=== PATIENT | male | born 1980 | race Caucasian/White ===

== ENCOUNTER 2016-04-15 15:42 | Observation (INO) | payer OTHER ==
[~2016-04-15] VITALS: Ht 180.3 cm; Wt 113.4 kg
[~2016-04-15 15:42] MED LIST: IBUP800T23 PO; METH500T3 PO
[2016-04-15 15:50] VITALS: BP 174/96; PULSE 83; RESP 20; TEMP 97.5; O2SAT 99
[2016-04-15] MEDS ORDERED: METH500T3 PO (15:54)
[2016-04-15 16:11] VITALS: O2SAT 95
--- NOTE | 2016-04-15 16:12 | PD ---
HPI Chief Complaint: Chest Pain Time Seen by Provider: 16:04 Travel History International Travel<30 days: No Contact w/Intl Traveler<30days: No Traveled to known affect area: No History of Present Illness HPI 35-year-old male complains of chest pain. Patient states that he has intermittent substernal chest pain for the past week. Patient states the pain is substernal pressure with radiation to left arm. Patient states that the pain usually lasts about 10 minutes and resolved completely. Patient states the pain is not associated with exertion. Patient states that he has shortness of breath with the chest pain. Patient denies any palpitation nausea vomiting diaphoresis. Patient denies any coughing congestion fever chills. Patient has history of elevated blood pressure recently however are not on any medication. Patient denies history diabetes, dyslipidemia. Patient was smoking in the past however stopped smoking in 2012. Patient denies family history heart disease. On a scale of 1-10 the pain is a 7. Patient took aspirin 325 mg, 2 tablets today. PFSH Past Medical History Immunizations Current: Yes Past Surgical History Other Surgery: Yes Social History Alcohol Use: No Tobacco Use: No (QUIT 2012) Substance Use: No Allergies-Medications (Allergen,Severity, Reaction): Coded Allergies: No Known Allergies (Unverified , 04/15/16) Reported Meds & Prescriptions Reported Meds & Active Scripts Active Reported Methocarbamol 500 Mg Tab 500 Mg PO QID Review of Systems General / Constitutional: No: Fever Eyes: No: Visual changes HENT: No: Headaches Cardiovascular: Positive: Chest Pain or Discomfort Respiratory: No: Shortness of Breath Gastrointestinal: No: Abdominal Pain Genitourinary: No: Dysuria Musculoskeletal: No: Pain Skin: No Rash Neurologic: No: Weakness Psychiatric: No: Depression Endocrine: No: Polydipsia Hematologic/Lymphatic: No: Easy Bruising Physical Exam Narrative GENERAL: Well-nourished, well-developed patient. SKIN: Warm and dry. HEAD: Normocephalic. EYES: No scleral icterus. No injection or drainage. NECK: Supple, trachea midline. No JVD or lymphadenopathy. CARDIOVASCULAR: Regular rate and rhythm without murmurs, gallops, or rubs. RESPIRATORY: Breath sounds equal bilaterally. No accessory muscle use. GASTROINTESTINAL: Abdomen soft, non-tender, nondistended. MUSCULOSKELETAL: No cyanosis, or edema. BACK: Nontender without obvious deformity. No CVA tenderness. Neurologic exam normal. Data Data Last Documented VS Vital Signs Date Time Temp Pulse Resp B/P Pulse Ox O2 Delivery O2 Flow Rate FiO2 04/15/16 16:48 64 20 131/84 95 04/15/16 15:50 97.5 Orders Complete Blood Count With Diff (04/15/16 16:08) Comprehensive Metabolic Panel (04/15/16 16:08) Creatine Kinase (Cpk) (04/15/16 16:08) Troponin I (04/15/16 16:08) Prothrombin Time / Inr (Pt) (04/15/16 16:08) Act Partial Throm Time (Ptt) (04/15/16 16:08) Chest, Single Ap (04/15/16 16:08) Iv Access Insert/Monitor (04/15/16 16:08) Ecg Monitoring (04/15/16 16:08) Oximetry (04/15/16 16:08) Labs Laboratory Tests Test 04/15/16 16:00 White Blood Count 8.7 TH/MM3 Red Blood Count 4.82 MIL/MM3 Hemoglobin 13.5 GM/DL Hematocrit 41.1 % Mean Corpuscular Volume 85.3 FL Mean Corpuscular Hemoglobin 28.1 PG Mean Corpuscular Hemoglobin 32.9 % Concent Red Cell Distribution Width 12.6 % Platelet Count 305 TH/MM3 Mean Platelet Volume 8.1 FL Neutrophils (%) (Auto) 55.9 % Lymphocytes (%) (Auto) 29.8 % Monocytes (%) (Auto) 12.8 % Eosinophils (%) (Auto) 1.1 % Basophils (%) (Auto) 0.4 % Neutrophils # (Auto) 4.9 TH/MM3 Lymphocytes # (Auto) 2.6 TH/MM3 Monocytes # (Auto) 1.1 TH/MM3 Eosinophils # (Auto) 0.1 TH/MM3 Basophils # (Auto) 0.0 TH/MM3 CBC Comment DIFF FINAL Differential Comment Prothrombin Time 10.7 SEC Prothromb Time International 1.0 RATIO Ratio Activated Partial 27.7 SEC Thromboplast Time Sodium Level 144 MEQ/L Potassium Level 3.6 MEQ/L Chloride Level 108 MEQ/L Carbon Dioxide Level 30.3 MEQ/L Anion Gap 6 MEQ/L Blood Urea Nitrogen 18 MG/DL Creatinine 0.93 MG/DL Estimat Glomerular Filtration 93 ML/MIN Rate Random Glucose 88 MG/DL Calcium Level 9.0 MG/DL Total Bilirubin 0.3 MG/DL Aspartate Amino Transf 23 U/L (AST/SGOT) Alanine Aminotransferase 46 U/L (ALT/SGPT) Alkaline Phosphatase 89 U/L Total Creatine Kinase 170 U/L Troponin I LESS THAN 0.02 NG/ML Total Protein 7.9 GM/DL Albumin 4.0 GM/DL MDM Medical Decision Making Medical Screen Exam Complete: Yes Emergency Medical Condition: Yes Interpretation(s) 1650 p.m. chest x-ray shows no acute process. CBC within normal limit. CMP within normal limit. Cardiac enzymes are normal. Differential Diagnosis Differential diagnosis including musculoskeletal, angina, TX, PE, pneumothorax. Narrative Course 35-year-old male with chest pain. Patient took aspirin 325, 2 tablets today. Patient will be admitted to the chest pain center. Diagnosis Primary Impression: Chest pain Qualified Code: R07.89 - Other chest pain Admitting Information Admitting Physician Requests: Observation John Umanzor MD Apr 15, 2016 16:12
[2016-04-15 16:28] LABS: CHLORIDE 108 MEQ/L (98-107); POTASSIUM 3.6 MEQ/L (3.5-5.1); SODIUM (NA) 144 MEQ/L (136-145)
--- NOTE | 2016-04-15 16:31 | RADHPO ---
EXAM DATE/TIME: 04/15/2016 16:17 [facility] COMPARISON: CHEST SINGLE AP, October 16, 2015, 16:00. INDICATIONS : Chest pain. MEDICAL HISTORY : None. SURGICAL HISTORY : None. ENCOUNTER: Initial ACUITY: 1 week PAIN SCORE: 6/10 LOCATION: Left chest FINDINGS: A single view of the chest demonstrates the lungs to be symmetrically aerated without evidence of mas s, infiltrate or effusion. The cardiomediastinal contours are unremarkable. Osseous structures are intact. CONCLUSION: No acute disease. Pato Jones MD on April 15, 2016 at 16:30 Board Certified Radiologist. This report was verified electronically.
[2016-04-15 16:32] LABS: ANION GAP 6 MEQ/L (5-15); APTT (PATIENT) 27.7 SEC (24.3-30.1); BICARBONATE 30.3 MEQ/L (21.0-32.0); BLOOD UREA NITROGEN 18 MG/DL (7-18); PROTHROMBIN TIME - PATIENT 10.7 SEC (9.8-11.6)
[2016-04-15 16:35] LABS: ALT (GPT) 46 U/L (12-78); AST (GOT) 23 U/L (15-37); GLOMERULAR FILTRATION RATE 93 ML/MIN (>89)
[2016-04-15 16:36] LABS: TOTAL BILIRUBIN ADULT 0.3 MG/DL (0.2-1.0)
[2016-04-15 16:37] LABS: CREATINE KINASE 170 U/L (39-308)
[2016-04-15 16:38] LABS: ALKALINE PHOSPHATASE 89 U/L (45-117)
[2016-04-15 16:42] LABS: AUTOMATED NEUTROPHIL # 4.9 TH/MM3 (1.8-7.7); BASOPHIL % 0.4 % (0.0-2.0); EOSINOPHIL # 0.1 TH/MM3 (0-0.4); EOSINOPHIL % 1.1 % (0.0-4.0); HEMATOCRIT 41.1 % (39.0-51.0); HEMO FLAGS DIFF FINAL; LYMPH % 29.8 % (9.0-44.0); LYMPHOCYTE # 2.6 TH/MM3 (1.0-4.8); MEAN CELL VOLUME 85.3 FL (80.0-100.0); MEAN CORPUSCULAR HEMOGLOBIN 28.1 PG (27.0-34.0); MEAN CORPUSCULAR HGB CONC 32.9 % (32.0-36.0); MONO % 12.8 % (0.0-8.0); NEUT % 55.9 % (16.0-70.0); PLATELET COUNT 305 TH/MM3 (150-450); RED BLOOD COUNT 4.82 MIL/MM3 (4.50-5.90); RED CELL DISTRIBUTION WIDTH 12.6 % (11.6-17.2); WHITE BLOOD COUNT 8.7 TH/MM3 (4.0-11.0)
[2016-04-15 16:48] VITALS: BP 131/84; PULSE 64; RESP 20; O2SAT 95
[2016-04-15] MEDS ORDERED: ONDANSETRON HCL 4 MG/2 ML VIAL IV PRN (17:00)
[2016-04-15] MEDS ORDERED: SODIUM CHLORIDE 0.9% FLUSH 5 ML FLUSH IVF PRN (17:00)
[2016-04-15] MEDS ORDERED: ACETAMINOPHEN 500 MG CPLT PO PRN (17:00)
[2016-04-15 17:50] VITALS: BP 142/86; PULSE 62; RESP 20; TEMP 96.7; O2SAT 99
[2016-04-15] MEDS: NITROGLYCERIN 0.4 MG SL 25 TABS/BTL SL PRN ×2 (18:45→18:51)
[2016-04-15 19:34] LABS: CREATINE KINASE 148 U/L (39-308)
[2016-04-15 19:46] LABS: CKMB 2.8 NG/ML (0.5-3.6)
[2016-04-15 20:00] VITALS: BP 142/88; PULSE 67; PULSE 75; RESP 16; TEMP 97.5; O2SAT 99
[2016-04-15] MEDS: METHOCARBAMOL 500 MG TAB PO SCH (20:42)
[2016-04-15] MEDS: SODIUM CHLORIDE 0.9% FLUSH 5 ML FLUSH IVF SCH (21:11)
[2016-04-15 22:19] LABS: CREATINE KINASE 135 U/L (39-308)
[2016-04-15 22:31] LABS: CKMB 2.7 NG/ML (0.5-3.6)
[2016-04-16] VITALS: BP 127/80; PULSE 64; RESP 16; TEMP 96.6; O2SAT 99
[2016-04-16 04:00] VITALS: BP 96/58; PULSE 58; RESP 16; TEMP 96.6; O2SAT 100
[2016-04-16 08:05] VITALS: BP 121/64; PULSE 17; RESP 18; TEMP 95.3; O2SAT 95
--- NOTE | 2016-04-16 08:23 | HHI.HP ---
[facility] No Primary Care Physician Admission Diagnosis chest pain Diagnoses: (1) Chest pain Diagnosis: Principal Chief Complaint: chest pain Travel History International Travel<30 Days: No Contact w/Intl Traveler <30 Da: No Traveled to Known Affected Are: No History of Present Illness 35-year-old male with no significant medical history is admitted to chest pain center. The patient admits to chest pain which he had for the past week, intermittently occurring. He additionally has associated numbness and tingling in the left arm. He describes the pain as sharp substernal lasting 5- 10 minutes at most. Denies it being associated with exertion or at rest, but rather occurring spontaneously. He states he could not take a deep breath due to the pain but denies actual pain with deep breathing. Patient states he took 600 mg of aspirin prior to arrival. Denies relief with nitroglycerin. He denies any current pain. Denies neck injury or heavy lifting. Denies any fevers or chills, cold, or cough symptoms. Denies any abdominal pain, nausea, vomiting. Denies history of DVT or pulmonary embolus, active cancer, hemoptysis , recent trauma, surgery, or hospitalization in the last 3 months. Denies any leg swelling. Patient states he has had episodes of high blood pressure, 155/ 90s, but does not regularly follow with a primary care physician. Review of Systems Constitutional: DENIES: Diaphoretic episodes, Dizziness Eyes: DENIES: Blurred vision Ears, nose, mouth, throat: DENIES: Throat pain, Ear Pain, Running Nose Respiratory: DENIES: Cough, Shortness of breath Cardiovascular: COMPLAINS OF: Chest pain Gastrointestinal: DENIES: Constipation, Diarrhea Genitourinary: DENIES: Dysuria Musculoskeletal: DENIES: Neck pain Integumentary: DENIES: Rash Neurologic: DENIES: Headache, Localized weakness Past Family Social History Past Medical History No reported medical problems Past Surgical History Left hand flexor tendon repair 1998 Reported Medications Patient takes no current medications. Allergies: Coded Allergies: No Known Allergies (Unverified , 04/15/16) Family History Father: CVA at age 67; skin and testicular cancer. Mother: Skin cancer. Brother: Congenital heart murmur. Patient denies any family history of RI, diabetes, hypertension Social History Quit smoking cigarettes in 2012. Prior to this smoked 1 pack per day for 10 years. Denies alcohol use. Denies any history of illicit drug use. Physical Exam Vital Signs Vital Signs Date Time Temp Pulse Resp B/P Pulse Ox O2 Delivery O2 Flow Rate FiO2 04/16/16 04:00 96.6 58 16 96/58 100 04/16/16 00:00 96.6 64 16 127/80 99 04/15/16 20:00 97.5 67 16 142/88 99 04/15/16 20:00 75 04/15/16 20:00 99 21 04/15/16 18:51 20 04/15/16 17:50 96.7 62 20 142/86 99 04/15/16 16:48 64 20 131/84 95 04/15/16 16:11 95 04/15/16 15:50 97.5 83 20 174/96 99 Physical Exam GENERAL: This is a well-nourished, well-developed patient, in no apparent distress. SKIN: No rashes, ecchymoses or lesions. HEAD: Atraumatic. Normocephalic. EYES: No scleral icterus. No injection or drainage. ENT: MMM. NECK: Trachea midline. No carotid bruits. CHEST: No reproducible chest wall tenderness. CARDIOVASCULAR: Regular rate and rhythm without murmurs. RESPIRATORY: Clear to auscultation. Breath sounds equal bilaterally. No wheezes , rales, or rhonchi. GASTROINTESTINAL: Normoactive bowel sounds. Abdomen soft, non-tender, nondistended. MUSCULOSKELETAL: No lower extremity edema bilaterally. NEUROLOGICAL: Awake and alert. Motor grossly within normal limits. Five out of 5 muscle strength in bilateral arms and legs. Normal speech. Laboratory Laboratory Tests Test 04/15/16 04/15/16 04/15/16 16:00 19:07 21:43 White Blood Count 8.7 Red Blood Count 4.82 Hemoglobin 13.5 Hematocrit 41.1 Mean Corpuscular Volume 85.3 Mean Corpuscular Hemoglobin 28.1 Mean Corpuscular Hemoglobin 32.9 Concent Red Cell Distribution Width 12.6 Platelet Count 305 Mean Platelet Volume 8.1 Neutrophils (%) (Auto) 55.9 Lymphocytes (%) (Auto) 29.8 Monocytes (%) (Auto) 12.8 Eosinophils (%) (Auto) 1.1 Basophils (%) (Auto) 0.4 Neutrophils # (Auto) 4.9 Lymphocytes # (Auto) 2.6 Monocytes # (Auto) 1.1 Eosinophils # (Auto) 0.1 Basophils # (Auto) 0.0 CBC Comment DIFF FINAL Differential Comment Prothrombin Time 10.7 Prothromb Time International 1.0 Ratio Activated Partial 27.7 Thromboplast Time Sodium Level 144 Potassium Level 3.6 Chloride Level 108 Carbon Dioxide Level 30.3 Anion Gap 6 Blood Urea Nitrogen 18 Creatinine 0.93 Estimat Glomerular Filtration 93 Rate Random Glucose 88 Calcium Level 9.0 Total Bilirubin 0.3 Aspartate Amino Transf 23 (AST/SGOT) Alanine Aminotransferase 46 (ALT/SGPT) Alkaline Phosphatase 89 Total Creatine Kinase 170 148 135 Troponin I LESS THAN 0.02 LESS THAN 0.02 LESS THAN 0.02 Total Protein 7.9 Albumin 4.0 Creatine Kinase MB 2.8 2.7 Result Diagram: 04/15/16 1600 04/15/16 1600 Imaging Last Impressions Chest X-Ray 04/15/16 1608 Signed Impressions: Service Date/Time: Friday, April 15, 2016 16:17 - CONCLUSION: No acute disease. Pato Jones MD Assessment and Plan Assessment and Plan 35-year-old male with: Chest pain: x 1 week; associated with numbness and tingling in the left arm. EKGs 3 personally interpreted with normal sinus rhythm and no evidence of ischemia. HI interval is prolonged at 216 on EKG #3. Troponin 3 less than 0.02. Chest x-ray personally reviewed and is normal. -Patient took 600 mg of aspirin at home -No current pain. Nitroglycerin as needed. -ETT was personally performed and reviewed with some ST depression in leads V5 and V6 in stage 3. This was reviewed by [employer] social media and crm, Dr. Perry who states this is probably normal but advises nuclear study. -Lexiscan ordered. Myocardial perfusion scan indicates fixed defects involving the cardiac apex anterior wall suggesting LAD infarct. No reversible defects to suggest ischemia. Global hypokinesis with EF of 41%. I spoke with Dr. Perry regarding these results. He states that it is likely a false positive result and advises patient to follow up with PCP. Hypertension: BP 174/96 on arrival. Patient became hypotensive after nitroglycerin which is now resolved. DVT prevention: patient ambulating Discharge disposition: Home in fair condition. Diet: Patient is advised to eat a heart healthy diet. Activity: Regular. No heavy lifting. Medications: None. Follow-up: PCP 1 week. Patient desires to follow-up with Dr. Cruz. He is advised he will likely need to get his cholesterol checked. He additionally is advised to keep a log of his blood pressures to address with Dr. Cruz. A copy of nuclear stress test has been provided to patient. Discussed Condition With Dr. Perry, [facility] vp digital marketing social media and crm Problem Qualifiers (1) Chest pain: Qualified Code: R07.89 - Other chest pain Alyssa Davies Apr 16, 2016 08:22
[2016-04-16] MEDS ORDERED: ASPIRIN 325 MG TAB PO SCH (09:00)
[2016-04-16] MEDS: METHOCARBAMOL 500 MG TAB PO SCH ×2 (09:00→13:00)
[2016-04-16] MEDS: SODIUM CHLORIDE 0.9% FLUSH 5 ML FLUSH IVF SCH (09:00)
[2016-04-16] MEDS ORDERED: REGADENOSON INJ 0.4 MG/5 ML SYR IV ONE (11:39)
--- NOTE | 2016-04-16 12:52 | RADHPO ---
EXAM DATE/TIME: 04/16/2016 11:37 [facility] COMPARISON: No previous studies available for comparison. INDICATIONS: Susbternal chest pain radiating to left arm with dyspnea. Abnormal exercise treadmill test. DOSE: 35.0 mCi Tc99m Myoview at stress. 11.0 mCi Tc99m Myoview at rest. 0.4 mg Lexiscan STRESS SYMPTOMS: Dyspnea, nausea and heart racing. EJECTION FRACTION: 41% MEDICAL HISTORY: None SURGICAL HISTORY: Tendon repair. ENCOUNTER: Initial ACUITY: 1 week PAIN SCALE: 6/10 LOCATION: Substernal chest TECHNIQUE: The patient underwent pharmacologic stress with infusion of prescribed dose. Continuous ECG tracing was monitored during stress. Gated SPECT imaging was performed after stress and conventional SPECT i maging was performed at rest. The examination was performed on a SPECT/CT scanner, both attenuation and non-corrected datasets were reviewed. FINDINGS: The gated Cine loop images demonstrate global hypokinesis. Left ventricular ejection fraction is elmo culated at 41%. The cardiac SPECT stress and rest images demonstrate fixed defects involving the cardiac apex and ant erior wall. These findings are suggestive of LAD infract. No reversible defects are noted to sugges t ischemia. CONCLUSION: 1. Fixed defects involving the cardiac apex and anterior wall suggesting LAD infarct. 2. No reversible defect to suggest ischemia. 3. Global hypokinesis with left ventricular ejection fraction calculating at 41%. RISK CATEGORY: Intermediate risk (1-3% annual mortality rate). Karl Carrera MD on April 16, 2016 at 12:42 Board Certified Radiologist. This report was verified electronically.
--- NOTE | 2016-04-16 13:04 | EKG ---
Date Performed: 04/15/2016 Time Performed: 19:05:06 PTAGE: 35 years EKG: Sinus rhythm Normal ECG PREVIOUS TRACING : 04/15/2016 15.44 Since previous tracing, non-specific T wave changes are imp roved. DOCTOR: Sharath Perry Interpretating Date/Time 04/16/2016 13:03:21
--- NOTE | 2016-04-16 13:07 | EKG ---
Date Performed: 04/15/2016 Time Performed: 15:44:36 PTAGE: 35 years EKG: Sinus rhythm Consider left atrial abnormality Anterior T wave changes are nonspecific Low QRS voltages in precord ial leads Borderline ECG NO PREVIOUS TRACING DOCTOR: Sharath Perry Interpretating Date/Time 04/16/2016 13:05:09
--- NOTE | 2016-04-16 13:07 | EKG ---
Date Performed: 04/15/2016 Time Performed: 21:40:44 PTAGE: 35 years EKG: Sinus rhythm with borderline 1st degree A-V block Borderline ECG PREVIOUS TRACING : 04/15/2016 19.05 Since previous tracing, no significant change noted DOCTOR: Sharath Perry Interpretating Date/Time 04/16/2016 13:05:57
--- NOTE | 2016-04-16 13:08 | TR ---
Date Performed: 04/16/2016 Time Performed: 11:43:20 DOCTOR: Sharath Perry DRUG LIST: CLINICAL HISTORY: CHEST PAIN CHEST PAIN REASON FOR TEST: Chest pain. REASON FOR ENDING: OBSERVATION: CONCLUSION: Lexiscan stress test was performed under standard four minute protocol. Radionuclid e was injected one minute prior to ending the test. No electrocardiographic abormalities were present to suggest ischemia. Nuclear imaging and interpretation are pending. COMMENTS:
--- NOTE | 2016-04-16 13:09 | HHI.DCPOC ---
Discharge Care Plan Your Health Problems Are: Chest Pain Goals to Promote Your Health * To prevent worsening of your condition and complications * To maintain your health at the optimal level Directions to Meet Your Goals Take your medications as prescribed Follow your dietary instruction Follow activity as directed Keep your appointments as scheduled Take your immunizations and boosters as scheduled If your symptoms worsen call your PCP, if no PCP go to Urgent Care Center or Emergency Room Smoking is Dangerous to Your Health. Avoid second hand smoke Call the 24-hour hour crisis hotline for domestic abuse at Alyssa Davies Apr 16, 2016 13:09
--- NOTE | 2016-04-16 13:10 | TR ---
Date Performed: 04/16/2016 Time Performed: 09:01:32 DOCTOR: Sharath Perry DRUG LIST: CLINICAL HISTORY: CHEST PAIN REASON FOR TEST: Chest pain. REASON FOR ENDING: OBSERVATION: CONCLUSION: Patient tolerated LIS protocol with Total Exercise Time=7:50 Maximum TC=999 % Max HR Achieved=87.0% Maximum EZ=941/68. Testing stopped secondary to goal achieved and leg fatigue. No c hest pain or arm symptoms during exercise. No arrythmias. HR and BP responded appropriately to exerci se and recovered appropriately. COMMENTS: ST depression noted in V5-V6 at peak of exercise, resolving within 1 minute into recov kassandra. This likely represents a false positive. Consider nuclear imaging
== END 2016-04-16 14:06 | disposition home or self-care (01) ==
LOC: PHED 15:42 → PHEDA 17:05 → PH3A 17:41
PROVIDERS: ADMIT Hospitalist; ATTEND Hospitalist
DX: R07.89 Other chest pain (principal); I10 Essential (primary) hypertension; R94.31 Abnormal electrocardiogram [ECG] [EKG]; Z87.891 Personal history of nicotine dependence
CPT/HCPCS: 71010; 78452; 80053; 82550; 82552; 84484; 85025; 85610; 85730; 93005; 93017; 99285; A9502; G0378; J2785